=== PATIENT | female | born 2000 | race Caucasian/White ===

== ENCOUNTER 2021-07-11 20:49 | Emergency (ER) | payer SELFPAY ==
[~2021-07-11] VITALS: Ht 154.9 cm; Wt 54.6 kg
[2021-07-11] MEDS ORDERED: FLUORESCEIN SODIUM 1MG/STRIP BOTHEYE ONE (22:00)
[2021-07-11] MEDS ORDERED: TETRACAINE 0.5% OPHTH DROPS 4ML BOTHEYE ONE (22:00)
[2021-07-11 22:26] VITALS: BP 91/55
== END 2021-07-11 22:35 | disposition home or self-care (01) ==
LOC: ER 20:49
DX: T15.12XA Foreign body in conjunctival sac, left eye, initial encounter (principal); X58.XXXA Exposure to other specified factors, initial encounter; Y93.9 Activity, unspecified; Y92.9 Unspecified place or not applicable
CPT/HCPCS: 99283